=== PATIENT | male | born 2000 | race Caucasian/White ===

== ENCOUNTER 2024-12-04 09:40 | Outpatient (CLI) | payer SELFPAY ==
--- OUTSIDE RECORDS SUMMARY | 2024-12-04 10:55 | XMS_ITS | Clinical Summary ---
Author Organization [facility] Address [address] [place] [address] Care Team Providers Care Math And Physics Instructor Name Role Phone Unavailable Primary Care Provider Unavailabl e Social History Tobacco Use Types Packs/Day Years Used Date Smoking Tobacco: Never Assessed Sex and Gender Information Value Date Recorded Sex Assigned at Not on file Legal Sex Male 11:16 PM WOOD [employer] Gender Identity Not on file Sexual Orientation Not on file Plan of Treatment Health Maintenance Due Date Last Done Comments Annual Physical 2002 HPV Vaccines (1 - Male 3-dos e series) 2014 Hepatitis C 2017 DTaP, Tdap and Td Vaccines ( 1 - Tdap) 2018 Hepatitis B Vaccines (1 of 3 - 19+ 3-dose series) 2018 COVID-19 Vaccine ( - 2023-2 5 season) 2024 Influenza Adult (#1) 2024 Meningococcal B Vaccine Aged Out No l onger eligible based on patient's age to complete this topic Meningococcal Vaccine Aged Out No jason anne marie eligible based on patient's age to complete this topic Pneumococcal Vaccine: Pediat rics (0 to 5 Years) and At-Risk Patients (6 to 64 Years) Aged Out No longer eligible b ased on patient's age to complete this topic RSV Immunizations Under 20 Months Aged Out No longer eligible based on patient's age to complete this topic
--- OUTSIDE RECORDS SUMMARY | 2024-12-04 10:56 | XMS_ITS ---
Author Organization Unknown Address [address] [place] [address] [phone] Phone Care Team Providers Care Rental Agent Name Role Phone EDMAR JORGE Attending Unavailable NO PCP Primary Unavailable Immunization Immunization Date Status Additional Notes Code Code System MMR 03/10/2000 Completed 03 CVX MMR 12/05/2003 Completed 03 CVX IPV 1999 Completed 10 CVX IPV 1999 Completed 10 CVX IPV 03/10/2000 Completed 10 CVX IPV 12/05/2003 Completed 10 CVX DTaP 1999 Completed 20 CVX DTaP 1999 Completed 20 CVX DTaP 1999 Completed 20 CVX DTaP 03/10/2000 Completed 20 CVX DTaP 12/05/2003 Completed 20 CVX varicella 03/31/2002 Completed 21 CVX varicella 04/09/2010 Completed 21 CVX Hib-Hep B 1999 Completed 51 CVX Hib-Hep B 1999 Completed 51 CVX Hib-Hep B 03/10/2000 Completed 51 CVX HPV, quadrivalent 02/20/2013 Completed 62 C VX HPV, quadrivalent 04/24/2013 Completed 62 C VX HPV, quadrivalent 09/25/2013 Completed 62 C VX Hep A, ped/adol, 2 dose 02/20/2013 Completed 83 CVX Hep A, unspecified formulation 09/25/2013 Completed 85 CVX meningococcal C conjugate 04/09/2010 Completed 103 CVX meningococcal MCV4P 11/18/2015 Completed 114 CVX Tdap 04/09/2010 Completed 115 CVX Results HAND 3V LEFT - Completed: 15:09 LOINC: EXAM DESCRIPTION: HAND 3V LEFT REASON FOR STUDY: smashed hand / pain and swelling across metacarpals Duration: 1 1/2 weeks TECHNIQUE: 3 radiographic view(s) of the left hand . COMPARISON: No comparison. FINDINGS: BONES/JOINTS: There is no acute fracture, malalignment or osseous abnormality. The joint spaces are normal. SOFT TISSUES: Within normal limits. IMPRESSION: No acute osseous abnormality. THIS IS AN ELECTRONICALLY VERIFIED FINAL REPORT 01/04/2024 3:13 PM - Electronically signed by Tg Lopez M.D. LC: NICKIE Report ID: [id number] Reading Location: [id number] Social History Type Status Start Date End Date Code Code Syst em Smoking History Never smoker (Never Smoked) 636812391 SNOMED CT Sex Male Hospital Discharge Instructions Should you have any questions prior to discharge, please contact a member of your healthcare team. If you have left the hospital and have any questions, please contact your primary care physician. Reason For Referral No Data Found Allergies and Adverse Reactions Allergy Substance Reaction Severity Start Date Concern Status Co de Code System No Known Allergies Moderate Active 891047227 SN OMED-CT No Known Allergies Moderate Active 858730771 SN OMED-CT Plan of Treatment No Data Found Encounters Encounter Diagnosis Start Date Code Code Sys tem Contusion of finger 01/04/2024 [id number] SNOMED-C T Personal Care Team Section Performer Name Performer Role Active Date Inactive Da te Imaging Narrative Notes
[2024-12-04 11:13] LABS: Liquefaction Semen Complete in 30 min. (<30 minutes); Semen Viscosity Not Increased (Not Increa.)
[2024-12-04 11:14] LABS: Semen Color Opaque (Grey-opaque)
[2024-12-04 11:15] LABS: Semen Immotility 15 %; Semen Morphology Result to Follow; Semen Non-Progressive Motility 15 %; Semen Progressive Motility 70 % (>32); Semen Total Motility 85 (>40% (PM+NP)); Sperm Count 24.1 Mil/mL (60-150 million/mL)
== END 2024-12-04 09:41 | disposition home or self-care (01) ==
LOC: CHSLAB 09:46
DX: Z31.41 Encounter for fertility testing (principal)
CPT/HCPCS: 82757; 88160; 89320